=== PATIENT | female | born 1985 | race Caucasian/White ===

== ENCOUNTER 2016-09-30 18:39 | Emergency (ER) | payer MEDICAID ==
[2016-09-30] MEDS ORDERED: fentaNYL 100 MCG/2 ML INJ IVP ONE (19:37)
[2016-09-30] MEDS ORDERED: ONDANSETRON 4 MG/2 ML VIAL IVP ONE (19:37)
[2016-09-30 19:53] LABS: % IMMATURE GRANULYOCYTES 0.3 % (0.0-1.1); ABSOLUTE IMMATURE GRANULOCYTES 0.02 10^3/uL (0.00-0.10); ADD DIFF? NO; ADD MORPH? NO; ADD SCAN? NO; ATYPICAL LYMPHOCYTE FLAG 10 (0-99); FRAGMENT RBC FLAG 0 (0-99); HEMATOCRIT 38.8 % (38.0-47.0); HEMOGLOBIN 13.3 g/dL (12.6-16.3); LEFT SHIFT FLG 0 (0-99); LIPEMIA HEMOLYSIS FLAG 90 (0-99); MEAN CELL HEMOGLOBIN 31.5 pg (27.9-34.1); MEAN CELL HEMOGLOBIN CONCENTR. 34.3 g/dL (32.4-36.7); MEAN CELL VOLUME 91.9 fL (81.5-99.8); MEAN PLATELET VOLUME 9.5 fL (8.7-11.7); PLATELET CLUMPS FLAG 0 (0-99); PLATELET COUNT 231 10^3/uL (150-400); RED BLOOD CELL COUNT 4.22 10^6/uL (4.18-5.33)
[2016-09-30] MEDS ORDERED: IOPAMIDOL (ISOVUE-300) 100 ML BTL IV ONE (19:55)
[2016-09-30 20:06] VITALS: BP 115/71
--- NOTE | 2016-09-30 20:19 | EDPHY ---
H & P Stated Complaint: R lower tooth infection Time Seen by Provider: 09/30/16 19:14 HPI/ROS: CHIEF COMPLAINT: right facial pain and swelling with fever HISTORY OF PRESENT ILLNESS: 31-year-old female presents emergency department complaining of increased right facial pain and swelling with a temperature of a 100.5degrees. Patient has a dental abscess and her tooth was removed by [facility] earlier today. The patient was placed on 300 mg of clindamycin every 6 hours, she was told to come to the emergency department immediately for any increase in her facial swelling. Patient reports her pain and swelling has increased significantly. She reports difficulty and pain with opening her mouth , she denies difficulty swallowing, no chest pain or shortness of breath. REVIEW OF SYSTEMS: A comprehensive 10 point review of systems is otherwise negative aside from elements mentioned in the history of present illness. Source: Patient Exam Limitations: No limitations - Personal History LMP (Females 10-55): 1-7 Days Ago Current Tetanus/Diphtheria Vaccine: Unsure Current Tetanus Diphtheria and Acellular Pertussis (TDAP): Unsure - Medical/Surgical History Hx Asthma: Yes Hx Chronic Respiratory Disease: No Hx Diabetes: No Hx Cardiac Disease: No Hx Renal Disease: No Hx Cirrhosis: No Hx Alcoholism: No Hx HIV/AIDS: No Hx Splenectomy or Spleen Trauma: No Other PMH: EPILEPSY, PTSD, anxiety, depression, 3 . , [employer] [facility] - Social History Smoking Status: Current every day smoker - Physical Exam Exam: Physical Exam Gen: Alert and Oriented, tearful HEENT: PERRL, moist mucous membranes, right-sided facial swelling over mandible the up to maxilla, no fluctuance, bilateral TMs normal, poor dental hygiene, right lower molar that was removed with no bleeding or drainage, no visible abscess, posterior pharynx is clear, uvula midline, no tonsillar swelling, no trismus NECK: no meningismus CV: Tachycardic rate and regular rhythm PULM: CTAB, no wheezes ABDOMEN: soft, non tender to palpation, BS present BACK: No CVA tenderness NEURO: Neurologically grossly intact EXTREMITIES: normal appearing SKIN: no rash or break in skin on exposed skin PSYCH: answers questions appropriately. Constitutional: Initial Vital Signs Temperature (C) 37.5 C 09/30/16 18:40 Heart Rate 110 H 01/02/17 18:40 Respiratory Rate 16 09/30/16 18:40 Blood Pressure 125/75 H 09/30/16 18:40 O2 Sat (%) 96 09/30/16 18:40 O2 Delivery Mode Room Air O2 (L/minute) 2 Allergies/Adverse Reactions: fluticasone propionate [From Advair Diskus] Allergy (Verified 08/05/16 18:36) nitrofurantoin [From Macrobid] Allergy (Verified 08/05/16 18:36) nitrofurantoin macrocrystalline [From Macrobid] Allergy (Verified 08/05/16 18:36 ) salmeterol xinafoate [From Advair Diskus] Allergy (Verified 08/05/16 18:36) sulfamethoxazole [From Bactrim] Allergy (Verified 08/05/16 18:36) trimethoprim [From Bactrim] Allergy (Verified 08/05/16 18:36) BCP Allergy (Uncoded 05/19/16 19:35) Home Medications: Medication Instructions Recorded Vit27&Calcium/Iron/FA 1 each PO 02/17/16 [] Medical Decision Making - Diagnostics Imaging: CT face with IV contrast- Impression: 1. Soft tissue swelling and phlegmon without abscess adjacent to the right side of the mandible with recent extraction of right first molar tooth as detailed above. 2. Dental caries. These findings were discussed by telephone with Wong Mariscal NP at 2050 hrs. Dictated By: Guzman Pacheco MD ED Course/Re-evaluation: IV established, CBC, chemistry panel, lactic acid, test and CT maxillofacial with IV contrast has been ordered. Patient is given 600 mg of ibuprofen orally, 4 mg of Zofran and 100 mcg of fentanyl for her pain. She has a temperature of 37.5degrees and a heart rate of 114. CBC, chemistry panel, lactic acid are unremarkable, test is negative, CT face shows no evidence of abscess, shows soft tissue swelling with phlegmon. Patient is given 2 oxycodone. She is discharged with instructions to do warm compresses to her face, 600 mg of ibuprofen every 8 hours with food, continue her clindamycin as prescribed and follow up with her dentist tomorrow. I have recommended warm compresses to her face. Patient's temperature is down to 36.9 , heart rate is down to 88. She is comfortable with being discharged home. No difficulty breathing or swallowing. Differential Diagnosis: Diagnosis considered but not limited to dental abscess, dental caries, Candido's angina, cellulitis - Data Points Laboratory Results: Laboratory Results 09/30/16 19:44 09/30/16 09/30/16 09/30/16 19:58 19:52 19:44 WBC 7.87 10^3/uL (3.80-9.50) RBC 4.22 10^6/uL (4.18-5.33) Hgb 13.3 g/dL (12.6-16.3) POC Hgb 13.6 gm/dL (12.3-15.9) Hct 38.8 % (38.0-47.0) POC Hct 40 % (35.5-47.5) MCV 91.9 fL (81.5-99.8) MCH 31.5 pg (27.9-34.1) MCHC 34.3 g/dL (32.4-36.7) RDW 12.0 % (11.5-15.2) Plt Count 231 10^3/uL (150-400) MPV 9.5 fL (8.7-11.7) Neut % (Auto) 72.4 % (39.3-74.2) Lymph % (Auto) 20.3 % (15.0-45.0) [place] % (Auto) 6.0 % (4.5-13.0) Eos % (Auto) 0.6 % (0.6-7.6) Baso % (Auto) 0.4 % (0.3-1.7) Nucleat RBC Rel Count 0.0 % (0.0-0.2) Absolute Neuts (auto) 5.70 10^3/uL (1.70-6.50) Absolute Lymphs (auto) 1.60 10^3/uL (1.00-3.00) Absolute Monos (auto) 0.47 10^3/uL (0.30-0.80) Absolute Eos (auto) 0.05 10^3/uL (0.03-0.40) Absolute Basos (auto) 0.03 10^3/uL (0.02-0.10) Absolute Nucleated RBC 0.00 10^3/uL (0-0.01) Immature Gran % 0.3 % (0.0-1.1) Immature Gran # 0.02 10^3/uL (0.00-0.10) VBG Lactic Acid 0.7 mmol/L (0.7-2.1) POC Sodium 143 mEq/L (134-144) POC Potassium 4.1 mEq/L (3.3-5.0) POC Chloride 108 mEq/L (96-108) POC BUN 6 L mg/dL (7-23) POC Creatinine 0.6 mg/dL (0.6-1.2) POC Glucose 95 mg/dL (70-100) Beta HCG, Qual NEGATIVE Medications Given: Discontinued Medications Fentanyl (Sublimaze) 100 mcg IVP EDNOW ONE Stop: 09/30/16 19:38 Last Admin: 09/30/16 19:59 Dose: 100 mcg Ibuprofen (Motrin) 600 mg PO EDNOW ONE Stop: 09/30/16 20:57 Last Admin: 09/30/16 21:14 Dose: 600 mg Ondansetron HCl (Zofran) 4 mg IVP EDNOW ONE Stop: 09/30/16 19:38 Last Admin: 09/30/16 19:59 Dose: 4 mg Oxycodone/Acetaminophen (Percocet 5/325) 2 tab PO EDNOW ONE Stop: 09/30/16 20:57 Last Admin: 09/30/16 21:14 Dose: 2 tab Point of Care Test Results: 09/30/16 19:52 POC Sodium 143 POC Potassium 4.1 POC Chloride 108 POC BUN 6 L POC Creatinine 0.6 POC Glucose 95 Departure - Departure Disposition: Home, Routine, Self-Care Clinical Impression: Dental infection Condition: Good Instructions: Dental Abscess (ED) Additional Instructions: Take 600 mg of ibuprofen every 8 hours with food, take your pain medication as prescribed by your dentist, warm compresses to the right-sided your face with warm wet washcloth, follow-up with your dentist tomorrow for re-evaluation, return to the emergency department for difficulty swallowing, worsening symptoms , other questions or concerns. Referrals: Le David [Primary Care Provider] - As per Instructions
--- NOTE | 2016-09-30 20:52 | CT ---
CT of the Facial Bones with contrast, 2018 hours History: Right-sided facial swelling. Right lower molar tooth pulled earlier today secondary to infe ction. Technique: Thin spiral images were obtained through the face from just below the mandible to above th e frontal sinuses with the administration of 90 mL Isovue-300 IV contrast. The data were reconstructe d in the sagittal and coronal plane. I also performed 3D reconstructions at the workstation to help visualize pathology. Dose reduction techniques were utilized. Findings: There is defect associate within the right Mandible secondary to extraction of right first molar. There is adjacent soft tissue swelling and gas bubble with phlegmon without evidence of defini tive abscess. Underlying dental caries is noted with numerous cavities. There is lucency around the r oots of the right first and second incisors. The left first premolar also demonstrates lucency around the roots. The majority of the tooth is not visualized and probably cracked off. The paranasal sinuses are clear. The submandibular and parotid glands are normal in appearance. There is normal enhancement of the vasculature within the neck. No significant plaque formation is seen. T he visualized intracranial structures are normal in appearance. Impression: 1. Soft tissue swelling and phlegmon without abscess adjacent to the right side of the mandible with recent extraction of right first molar tooth as detailed above. 2. Dental caries. These findings were discussed by telephone with Wong Mariscal NP at 2050 hrs.
[2016-09-30] MEDS ORDERED: OXYCODONE/APAP 5/325 TAB PO ONE (20:56)
[2016-09-30] MEDS ORDERED: IBUPROFEN 600 MG TAB PO ONE (20:56)
[2016-09-30 21:15] VITALS: PULSE 88; RESP 16; TEMP 98.4; O2SAT 96
== END 2016-09-30 21:14 | disposition home or self-care (01) ==
DX: K04.7 Periapical abscess without sinus (principal); J45.909 Unspecified asthma, uncomplicated; F17.200 Nicotine dependence, unspecified, uncomplicated
CPT/HCPCS: 82947-QW; 96374; J2405; J3010; Q9967

== ENCOUNTER 2017-07-15 16:28 | Emergency (ER) | payer MEDICAID ==
[2017-07-15 16:44] VITALS: TEMP 98.6
--- NOTE | 2017-07-15 16:50 | EDPHY ---
H & P Stated Complaint: DX with bronchitis Thur- last pm inc. SOB with Lt mid back pain Time Seen by Provider: 07/15/17 16:42 HPI/ROS: CHIEF COMPLAINT: Shortness of breath, back pain HISTORY OF PRESENT ILLNESS: The patient is a 31-year-old female with a history of asthma who comes to the emergency department complaining shortness of breath and left upper back pain. She saw her primary doctor on who diagnosed her clinically with bronchitis and started on erythromycin and steroids. She states that her symptoms have not improved at all. She has had a fever up to 101.9. She has had a nonproductive cough that has made her vomit. She is up-to -date on her tetanus/pertussis vaccine. She denies chest pain or abdominal pain. No sore throat, no ear pain, no sinus congestion. No leg pain or edema, no recent travel. No control use. She is a smoker. REVIEW OF SYSTEMS: Constitutional: denies: chills, fever, recent illness, recent injury EENTM: denies: blurred vision, double vision, nose congestion Respiratory: See HPI Cardiac: denies: chest pain, irregular heart rate, lightheadedness, palpitations Gastrointestinal/Abdominal: denies: abdominal pain, diarrhea, nausea, vomiting, blood streaked stools Genitourinary: denies: dysuria, frequency, hematuria, pain Musculoskeletal: denies: joint pain, muscle pain Skin: denies: lesions, rash, jaundice, bruising Neurological: denies: headache, numbness, paresthesia, tingling, dizziness, weakness Hematologic/Lymphatic: denies: blood clots, easy bleeding, easy bruising Immunologic/allergic: denies: HIV/AIDS, transplant EXAM: GENERAL: Well-appearing, well-nourished and in no acute distress. HEAD: Atraumatic, normocephalic. EYES: Pupils equal round and reactive to light, extraocular movements intact, sclera anicteric, conjunctiva are normal. ENT: TMs normal, nares patent, oropharynx clear without exudates. Moist mucous membranes. NECK: Normal range of motion, supple without lymphadenopathy or JVD. LUNGS: Breath sounds clear to auscultation bilaterally and equal. No wheezes rales or rhonchi. HEART: Regular rate and rhythm without murmurs, rubs or gallops. ABDOMEN: Soft, nontender, normoactive bowel sounds. No guarding, no rebound. No masses appreciated. BACK: No CVA tenderness, no spinal tenderness, step-offs or deformities EXTREMITIES: Normal range of motion, no pitting or edema. No clubbing or cyanosis. NEUROLOGICAL: Cranial nerves II through XII grossly intact. Normal speech, normal gait. 5/5 strength, normal movement in all extremities, normal sensation PSYCH: Normal mood, normal affect. SKIN: Warm, dry, normal turgor, no visible rashes or lesions. Source: Patient Exam Limitations: No limitations - Personal History LMP (Females 10-55): Over 28 Days Ago Current Tetanus Diphtheria and Acellular Pertussis (TDAP): Yes - Medical/Surgical History Hx Asthma: Yes Hx Chronic Respiratory Disease: No Hx Diabetes: No Hx Cardiac Disease: No Hx Renal Disease: No Hx Cirrhosis: No Hx Alcoholism: No Hx HIV/AIDS: No Hx Splenectomy or Spleen Trauma: No Other PMH: EPILEPSY, PTSD, anxiety, depression, 3 . , [employer], tubes tied. Bronchitis/Pne X8/ chronic back pain - Family History Significant Family History: No pertinent family hx - Social History Smoking Status: Current every day smoker Alcohol Use: None Drug Use: None Constitutional: Initial Vital Signs Temperature (C) 37 C 07/15/17 16:41 Heart Rate 88 07/15/17 16:41 Respiratory Rate 18 07/15/17 16:41 Blood Pressure 92/74 L 07/15/17 16:41 O2 Sat (%) 99 07/15/17 16:41 O2 Delivery Mode Room Air Allergies/Adverse Reactions: fluticasone propionate [From Advair Diskus] Allergy (Verified 08/05/16 18:36) nitrofurantoin [From Macrobid] Allergy (Verified 08/05/16 18:36) nitrofurantoin macrocrystalline [From Macrobid] Allergy (Verified 08/05/16 18:36 ) salmeterol xinafoate [From Advair Diskus] Allergy (Verified 08/05/16 18:36) sulfamethoxazole [From Bactrim] Allergy (Verified 08/05/16 18:36) trimethoprim [From Bactrim] Allergy (Verified 08/05/16 18:36) BCP Allergy (Uncoded 05/19/16 19:35) Home Medications: Medication Instructions Recorded Erythromycin 07/15/17 Ipratropium 07/15/17 Proair Hfa Icu (*) 07/15/17 Medical Decision Making - Diagnostics EKG Interpretation: An EKG obtained and was read and documented in trace view. Please see trace view for full reading and report. Sinus rhythm, no acute ischemic changes Imaging Results: Imaging Impressions Chest X-Ray 07/15/17 16:48 Impression: Possible airways disease. No pneumonia. ED Course/Re-evaluation: We discussed the patient's test results which are very reassuring. Her vital signs remained stable. She is saturating 98% on room air. No wheezing on exam. I agree that she does have bronchitis and we discussed the fact that this is likely viral especially since antibiotics have not helped. We discussed rest, hydration and time. Discussed indications for returning to the emergency department. Patient and are grateful. Differential Diagnosis: Partial list of the Differential diagnosis considered include but were not limited to; bronchitis, pneumonia, PE and although unlikely based on the history and physical exam, I also considered acute coronary disease, pneumothorax. I discussed these differential diagnoses and the plan with the patient as well as the usual and expected course. The patient understands that the diagnosis is provisional and that in medicine we are not always correct and that further workup is often warranted. Usual and customary warnings were given. All of the patient's questions were answered. The patient was instructed to return to the emergency department should the symptoms at all worsen or return, otherwise to followup with the physician as we discussed. - Data Points Laboratory Results: Laboratory Results 07/15/17 16:53 07/15/17 16:53 07/15/17 07/15/17 07/15/17 16:53 16:53 16:53 WBC RBC Hgb Hct MCV MCH MCHC RDW Plt Count MPV Neut % (Auto) Lymph % (Auto) [place] % (Auto) Eos % (Auto) Baso % (Auto) Nucleat RBC Rel Count Absolute Neuts (auto) Absolute Lymphs (auto) Absolute Monos (auto) Absolute Eos (auto) Absolute Basos (auto) Absolute Nucleated RBC Immature Gran % Immature Gran # PT 12.2 SEC SEC (12.0-15.0) INR 0.93 (0.83-1.16) APTT 30.3 SEC SEC (23.0-38.0) D-Dimer 0.35 ug/mLFEU ug/mLFEU (0.00-0.50) Sodium 137 mEq/L mEq/L (134-144) Potassium 4.0 mEq/L mEq/L (3.5-5.2) Chloride 106 mEq/L mEq/L (97-110) Carbon Dioxide 19 mEq/l L mEq/l (22-31) Anion Gap 12 mEq/L mEq/L (8-16) BUN 16 mg/dL mg/dL (7-23) Creatinine 0.8 mg/dL mg/dL (0.6-1.0) Estimated GFR > 60 Glucose 94 mg/dL mg/dL (70-100) Calcium 9.6 mg/dL mg/dL (8.5-10.4) Troponin I < 0.012 ng/mL ng/mL (0.000-0.034) Influenza A,B Rapid NEGATIVE FOR FLU (NEGATIVE) 07/15/17 16:53 WBC 14.26 10^3/uL H 10^3/uL (3.80-9.50) RBC 4.47 10^6/uL 10^6/uL (4.18-5.33) Hgb 13.6 g/dL g/dL (12.6-16.3) Hct 39.4 % % (38.0-47.0) MCV 88.1 fL fL (81.5-99.8) MCH 30.4 pg pg (27.9-34.1) MCHC 34.5 g/dL g/dL (32.4-36.7) RDW 12.3 % % (11.5-15.2) Plt Count 326 10^3/uL 10^3/uL (150-400) MPV 9.5 fL fL (8.7-11.7) Neut % (Auto) 62.6 % % (39.3-74.2) Lymph % (Auto) 30.3 % % (15.0-45.0) [place] % (Auto) 5.5 % % (4.5-13.0) Eos % (Auto) 0.6 % % (0.6-7.6) Baso % (Auto) 0.5 % % (0.3-1.7) Nucleat RBC Rel Count 0.0 % % (0.0-0.2) Absolute Neuts (auto) 8.93 10^3/uL H 10^3/uL (1.70-6.50) Absolute Lymphs (auto) 4.32 10^3/uL H 10^3/uL (1.00-3.00) Absolute Monos (auto) 0.78 10^3/uL 10^3/uL (0.30-0.80) Absolute Eos (auto) 0.09 10^3/uL 10^3/uL (0.03-0.40) Absolute Basos (auto) 0.07 10^3/uL 10^3/uL (0.02-0.10) Absolute Nucleated RBC 0.00 10^3/uL 10^3/uL (0-0.01) Immature Gran % 0.5 % % (0.0-1.1) Immature Gran # 0.07 10^3/uL 10^3/uL (0.00-0.10) PT INR APTT D-Dimer Sodium Potassium Chloride Carbon Dioxide Anion Gap BUN Creatinine Estimated GFR Glucose Calcium Troponin I Influenza A,B Rapid Departure - Departure Disposition: Home, Routine, Self-Care Clinical Impression: Acute bronchitis Qualifiers: Bronchitis organism: unspecified organism Qualified Code(s): J20.9 - Acute bronchitis, unspecified Condition: Fair Instructions: Acute Bronchitis (ED) Referrals: Le David [Primary Care Provider] - As per Instructions
--- NOTE | 2017-07-15 17:03 | CPEKG ---
Heart Rate: 73 RR Interval: 822 P-R Interval: 128 QRSD Interval: 88 QT Interval: 424 QTC Interval: 468 P Fletcher: 74 QRS Fletcher: 76 T Wave Fletcher: 75 EKG Severity - NORMAL ECG - EKG Impression: SINUS RHYTHM Electronically Signed By: Wilder Arroyo 15-Jul-2017 17:17:56
[2017-07-15 17:08] LABS: % IMMATURE GRANULYOCYTES 0.5 % (0.0-1.1); ABSOLUTE IMMATURE GRANULOCYTES 0.07 10^3/uL (0.00-0.10); ADD DIFF? NO; ADD MORPH? NO; ADD SCAN? NO; ATYPICAL LYMPHOCYTE FLAG 20 (0-99); FRAGMENT RBC FLAG 0 (0-99); HEMATOCRIT 39.4 % (38.0-47.0); HEMOGLOBIN 13.6 g/dL (12.6-16.3); LEFT SHIFT FLG 0 (0-99); LIPEMIA HEMOLYSIS FLAG 90 (0-99); MEAN CELL HEMOGLOBIN 30.4 pg (27.9-34.1); MEAN CELL HEMOGLOBIN CONCENTR. 34.5 g/dL (32.4-36.7); MEAN CELL VOLUME 88.1 fL (81.5-99.8); MEAN PLATELET VOLUME 9.5 fL (8.7-11.7); PLATELET CLUMPS FLAG 10 (0-99); PLATELET COUNT 326 10^3/uL (150-400); RED BLOOD CELL COUNT 4.47 10^6/uL (4.18-5.33); RED CELL DISTRIBUTION WIDTH 12.3 % (11.5-15.2)
[2017-07-15 17:21] LABS: ANION GAP 12 mEq/L (8-16); CALCIUM 9.6 mg/dL (8.5-10.4); CARBON DIOXIDE 19 mEq/l (22-31); CHLORIDE 106 mEq/L (97-110); CREATININE 0.8 mg/dL (0.6-1.0); GLOMERULAR FILTRATION RATE > 60; GLUCOSE 94 mg/dL (70-100); INR 0.93 (0.83-1.16); PROTIME(PATIENT) 12.2 SEC (12.0-15.0); SODIUM 137 mEq/L (134-144)
[2017-07-15 17:22] LABS: APTT 30.3 SEC (23.0-38.0)
[2017-07-15 17:34] LABS: TROPONIN I < 0.012 ng/mL (0.000-0.034)
[2017-07-15 17:58] VITALS: BP 110/57; PULSE 85; RESP 20; O2SAT 97
== END 2017-07-15 17:55 | disposition home or self-care (01) ==
LOC: CED 16:28
DX: J20.9 Acute bronchitis, unspecified (principal); F17.200 Nicotine dependence, unspecified, uncomplicated; J45.909 Unspecified asthma, uncomplicated
CPT/HCPCS: 71020-PO; 80048-PO; 84484-PO; 85025-PO; 85378-PO; 85610-PO; 85730-PO; 87400-PO

== ENCOUNTER 2017-12-21 12:13 | Emergency (ER) | payer MEDICAID ==
[2017-12-21 12:19] VITALS: RESP 16; TEMP 98.6
--- NOTE | 2017-12-21 12:22 | EDPHY ---
H & P Stated Complaint: L thumb and L wrist pain x 5 months. Time Seen by Provider: 12/21/17 12:22 HPI/ROS: CHIEF COMPLAINT: Pain at base of left thumb HISTORY OF PRESENT ILLNESS: This is a 32-year-old [id number] female who presents with 5 months of intermittent left hand pain. The pain is located below her left thumb, in the thenar eminence and extends onto her wrist. Pain is worsened with pressure or wrist movement. She notes some mild numbness of the thumb and index finger. She has been taking ibuprofen 600 mg with minimal relief of her pain. She has tried ice and heat. There was no trauma. 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 She has no history of diabetes or thyroid issues. REVIEW OF SYSTEMS: A ten point review of systems was performed and is negative with the exception of the items mentioned in the HPI. Past medical history: Reactive airway disease Past surgical history: section x3, laparoscopy to assess for endometriosis, tubal ligation Social history: She is . She has 3 children. She does not drink alcohol. She smokes cigarettes General Appearance: Alert. Vital signs reviewed. Focused exam performed. Heart rate 105 at triage, normal at time of my exam. Respiratory: Lungs are clear to auscultation; no wheezes, rales, or rhonchi. Cardiovascular: Regular rate and rhythm; no murmur, rub, or gallop. Skin: Warm and dry, no rashes on exposed skin, normal color. Extremities: Tender to palpation over the left thenar eminence. There is mild swelling of the left thenar eminence. No warmth or redness. She has full flexion extension of all the digits of her left hand but is reluctant to try motor strength testing of the digits, due to pain. She has pain with left wrist movement. Very mild decreased to light touch over the left thumb and index finger. Pulses: 2+ radial pulses bilaterally. Neurological: Alert and oriented. Moving all four extremities easily and equally. Psychiatric: Normal affect. - Personal History LMP (Females 10-55): 15-21 Days Ago Current Tetanus Diphtheria and Acellular Pertussis (TDAP): Yes Tetanus Vaccine Date: within 10 years - Medical/Surgical History Hx Asthma: Yes Hx Chronic Respiratory Disease: No Hx Diabetes: No Hx Cardiac Disease: No Hx Renal Disease: No Hx Cirrhosis: No Hx Alcoholism: No Hx HIV/AIDS: No Hx Splenectomy or Spleen Trauma: No Other PMH: EPILEPSY, PTSD, anxiety, depression, 3 . , [employer], tubes tied. Bronchitis/Pne X8/ chronic back pain - Social History Smoking Status: Current every day smoker Constitutional: Initial Vital Signs Temperature (C) 37 C 12/21/17 12:16 Heart Rate 105 H 12/21/17 12:16 Respiratory Rate 16 12/21/17 12:16 Blood Pressure 101/75 12/21/17 12:16 O2 Sat (%) 96 12/21/17 12:16 O2 Delivery Mode Room Air Allergies/Adverse Reactions: fluticasone propionate [From Advair Diskus] Allergy (Verified 08/05/16 18:36) nitrofurantoin [From Macrobid] Allergy (Verified 08/05/16 18:36) nitrofurantoin macrocrystalline [From Macrobid] Allergy (Verified 08/05/16 18:36 ) salmeterol xinafoate [From Advair Diskus] Allergy (Verified 08/05/16 18:36) sulfamethoxazole [From Bactrim] Allergy (Verified 08/05/16 18:36) trimethoprim [From Bactrim] Allergy (Verified 08/05/16 18:36) BCP Allergy (Uncoded 05/19/16 19:35) Home Medications: Medication Instructions Recorded Erythromycin 07/15/17 Ipratropium 07/15/17 Proair Hfa Icu (*) 07/15/17 Hydrocodone/APAP 5/325 [[place] 1 - 2 tab PO Q4 PRN #10 tab 12/21/17 5/325 (RX)] Medical Decision Making - Diagnostics Imaging Results: Imaging Impressions Hand X-Ray 12/21/17 12:40 Impression: Negative. No arthropathy or acute process. ED Course/Re-evaluation: Atraumatic left hand pain. This has been present for 5 months. X-ray of the left hand is negative for any abnormalities. I have reviewed the images. There parts of her presentation that suggest an overuse injury such as carpal tunnel syndrome. She has been taking ibuprofen intermittently. I am recommending regular ibuprofen doses interspersed with Tylenol. She is given a Velcro wrist splint to use. I am also providing a small amount of Gl[place] to use at night when her pain is worse. She will follow up with her primary care physician. Further specialist care will be directed by her primary care physician. Differential Diagnosis: I considered a differential diagnosis that includes but is not limited to fracture, dislocation, arthritis (rheumatoid or osteo), overuse syndrome, tendinopathy, sprain/strain. - Data Points Medications Given: Discontinued Medications Acetaminophen (Tylenol) 650 mg PO EDNOW ONE Stop: 12/21/17 12:41 Last Admin: 12/21/17 12:51 Dose: 650 mg Ibuprofen (Motrin) 600 mg PO EDNOW ONE Stop: 12/21/17 12:41 Last Admin: 12/21/17 12:50 Dose: 600 mg Departure - Departure Disposition: Home, Routine, Self-Care Clinical Impression: Hand pain, left Condition: Good Instructions: Swollen Joint (ED) Additional Instructions: Adult Pain & Fever Control: We recommend Acetaminophen (Tylenol) and Ibuprofen (Motrin,Advil) for pain and fever control. When fever is high or pain severe, both drugs can be used at the same time, but at different intervals. Please note the time differences. Your dose is: Acetaminophen 400mg every 4 to 6 hours Ibuprofen 600mg every 6 to 8 hours with food OR . Note: do not take Acetaminophen with Hydrocodone (Vicodin, Lortab) or Oycodone (Percocet). These medications also contain Acetaminophen. No more than 3000mg of Acetaminophen should be taken in 24 hours (for an adult).I think that you could have an overuse injury, such as carpal tunnel syndrome. I am recommending that you take ibuprofen 600 mg every 6-8 hours while awake. You can also take Tylenol along with this--I recommend taking the Tylenol between her ibuprofen doses. You should write down what medications you take and the time that you take them. I am giving a prescription for small amount of Gl[place] to use for the severe pain. This contains hydrocodone, an opiate. It also contains Tylenol so you need to take it into account in terms of your overall Tylenol dosage. You should not take more than 3000 mg of Tylenol in 24 hr. I recommend that you schedule follow-up appointment with Dr. David if you're not better in a week or so. Call tomorrow to schedule this appointment--you can always cancel it if you find that you are feeling better. Referrals: Le David [Primary Care Provider] - As per Instructions Prescriptions: Hydrocodone/APAP 5/325 [Glidden 5/325 (RX)] 1 - 2 tab PO Q4 PRN #10 tab PRN Reason: pain
[2017-12-21] MEDS ORDERED: ACETAMINOPHEN 325 MG TAB PO ONE (12:40)
[2017-12-21] MEDS ORDERED: IBUPROFEN 600 MG TAB PO ONE (12:40)
[2017-12-21 13:48] VITALS: BP 108/72; PULSE 98; O2SAT 95
== END 2017-12-21 13:44 | disposition home or self-care (01) ==
LOC: CED 12:13
DX: M79.642 Pain in left hand (principal); J45.909 Unspecified asthma, uncomplicated; F17.200 Nicotine dependence, unspecified, uncomplicated
CPT/HCPCS: 73130-PO